=== PATIENT | female | born 1990 | race Caucasian/White ===

== ENCOUNTER → 2017-03-18 | Outpatient (CLI) | payer BC, OTHER ==
--- NOTE | 2017-03-18 13:32 | EKG REPORT ---
SEVERITY:- OTHERWISE NORMAL ECG - SINUS TACHYCARDIA : Confirmed by: Jaskaran Celeste 18-Mar-2017 13:31:20
== END ==
LOC: RAD 11:39
PROVIDERS: ATTEND Advanced Practice Midwife
DX: R00.0 Tachycardia, unspecified (principal)
CPT/HCPCS: 93005; 93010

== ENCOUNTER 2017-05-09 14:29 | Outpatient (CLI) | payer BC ==
--- NOTE | 2017-05-09 16:13 | Non Stress Test Report ---
Non Stress Test Datetime Report Generated by CPN: 05/09/2017 16:13 DEMOGRAPHIC Test Number: 1 EGA NST: 34.6 INDICATION Indication for Study: Other MONITORING Monitor Explained: Monitor Explained; Test Explained; Patient Verbalized Understanding Time on Monitor: 05/09/2017 11:08 Time off Monitor: 05/09/2017 16:06 NST Duration: 298 NST INTERVENTIONS NST Interventions: PO Hydration Physician Notified NST: C. Mead, CNM BABY A: [id number] BABY A Movement : Present Contraction Frequency : Irregular FHR Baseline : 130 Accelerations : 15X15 Decelerations : None Variability : Moderate 6-25bpm NST Review: Meets Criteria for Reactive NST NST Review and Verified By : Guillermina Camp RNC NST Results: Reactive NST REPORT Report Trigger: Send Report
[2017-05-09 16:14] LABS: APPEARANCE,URINE CLEAR; BILIRUBIN,URINE NEGATIVE (NEGATIVE); COLOR,URINE STRAW; GLUCOSE, URINE NEGATIVE (NEGATIVE); KETONES,URINE NEGATIVE (NEGATIVE); LEUKOCYTE ESTERASE,URINE NEGATIVE (NEGATIVE); NITRITE,URINE NEGATIVE (NEGATIVE); PROTEIN,URINE NEGATIVE (NEGATIVE); URINE SPECIFIC GRAVITY 1.005; UROBILINOGEN,URINE NEGATIVE mg/dL (<2.0)
[2017-05-09 16:24] LABS: URINE AMPHETAMINES SCREEN NEGATIVE; URINE BARBITURATES SCREEN NEGATIVE; URINE BENZODIAZEPINES SCREEN NEGATIVE; URINE COCAINE SCREEN NEGATIVE; URINE MARIJUANA (THC) SCREEN NEGATIVE; URINE METHADONE SCREEN NEGATIVE; URINE PHENCYCLIDINE SCREEN NEGATIVE
== END 2017-05-09 16:13 | disposition home or self-care (01) ==
LOC: LC 14:29
PROVIDERS: ATTEND Obstetrics & Gynecology Gynecology
PROC: 4A1HXCZ Monitoring of Products of Conception, Cardiac Rate, External Approach (ICD-10-PCS; principal; 2017-05-09)
DX: O47.03 False labor before 37 completed weeks of gestation, third trimester (principal); Z3A.34 34 weeks gestation of pregnancy
CPT/HCPCS: 59025; 80307; 81001

== ENCOUNTER 2017-05-25 20:07 | Outpatient (CLI) | payer BC ==
[2017-05-25] MEDS ORDERED: RINGERS SOLUTION,LACTATED 1,000 ML IV PRN (20:29)
[2017-05-25 20:35] LABS: APPEARANCE,URINE CLEAR; BILIRUBIN,URINE NEGATIVE (NEGATIVE); COLOR,URINE YELLOW; GLUCOSE, URINE NEGATIVE (NEGATIVE); KETONES,URINE NEGATIVE (NEGATIVE); LEUKOCYTE ESTERASE,URINE NEGATIVE (NEGATIVE); NITRITE,URINE NEGATIVE (NEGATIVE); PROTEIN,URINE NEGATIVE (NEGATIVE); URINE SPECIFIC GRAVITY 1.014; UROBILINOGEN,URINE NEGATIVE mg/dL (<2.0)
[2017-05-25 20:56] LABS: URINE AMPHETAMINES SCREEN NEGATIVE; URINE BARBITURATES SCREEN NEGATIVE; URINE BENZODIAZEPINES SCREEN NEGATIVE; URINE COCAINE SCREEN NEGATIVE; URINE MARIJUANA (THC) SCREEN NEGATIVE; URINE METHADONE SCREEN NEGATIVE; URINE PHENCYCLIDINE SCREEN NEGATIVE
[2017-05-25] MEDS ORDERED: NALBUPHINE HCL INJ 10 MG/1 ML AMPULE ONE (22:53)
--- NOTE | 2017-05-25 23:53 | Non Stress Test Report ---
Non Stress Test Datetime Report Generated by CPN: 05/25/2017 23:53 DEMOGRAPHIC EGA NST: 37.1 INDICATION Indication for Study: Other Indication for Study (NST) Other: lc MONITORING Monitor Explained: Monitor Explained; Test Explained; Patient Verbalized Understanding Time on Monitor: 05/25/2017 22:00 Time off Monitor: 05/25/2017 23:00 NST Duration: 60 NST INTERVENTIONS NST Interventions: IV Fluids; Reposition Patient Physician Notified NST: Dr Trevizo BABY A: [id number] BABY A Movement : Present Contraction Frequency : 5-9 FHR Baseline : 130 Accelerations : 15X15 Decelerations : None Variability : Moderate 6-25bpm NST Review: Meets Criteria for Reactive NST NST Review and Verified By : Becca Blank RN NST Results: Reactive NST REPORT Report Trigger: Send Report
== END 2017-05-25 23:30 | disposition home or self-care (01) ==
LOC: LC 20:07
PROVIDERS: ATTEND Obstetrics & Gynecology
PROC: 4A1HXCZ Monitoring of Products of Conception, Cardiac Rate, External Approach (ICD-10-PCS; principal; 2017-05-25)
DX: O47.1 False labor at or after 37 completed weeks of gestation (principal); Z3A.37 37 weeks gestation of pregnancy
CPT/HCPCS: 59025; 81005; 80307; J2300

== ENCOUNTER 2017-05-26 21:20 | Outpatient (CLI) | payer BC ==
[2017-05-26 23:03] LABS: URINE AMPHETAMINES SCREEN NEGATIVE; URINE BARBITURATES SCREEN NEGATIVE; URINE BENZODIAZEPINES SCREEN NEGATIVE; URINE COCAINE SCREEN NEGATIVE; URINE MARIJUANA (THC) SCREEN NEGATIVE; URINE METHADONE SCREEN NEGATIVE; URINE PHENCYCLIDINE SCREEN NEGATIVE
[2017-05-26 23:05] LABS: APPEARANCE,URINE CLEAR; BILIRUBIN,URINE NEGATIVE (NEGATIVE); COLOR,URINE YELLOW; GLUCOSE, URINE NEGATIVE (NEGATIVE); KETONES,URINE NEGATIVE (NEGATIVE); LEUKOCYTE ESTERASE,URINE NEGATIVE (NEGATIVE); NITRITE,URINE NEGATIVE (NEGATIVE); PROTEIN,URINE NEGATIVE (NEGATIVE); URINE SPECIFIC GRAVITY 1.014; UROBILINOGEN,URINE NEGATIVE mg/dL (<2.0)
== END 2017-05-26 22:32 | disposition home or self-care (01) ==
LOC: LC 21:20
PROVIDERS: ATTEND Student in an Organized Health Care Education/Training Program
PROC: 4A1HXCZ Monitoring of Products of Conception, Cardiac Rate, External Approach (ICD-10-PCS; principal; 2017-05-26)
DX: O47.1 False labor at or after 37 completed weeks of gestation (principal); Z3A.37 37 weeks gestation of pregnancy
CPT/HCPCS: 59025; 80307; 81001

== ENCOUNTER 2017-06-07 04:59 | Inpatient (IN) | payer BC ==
[2017-06-05 12:31] LABS: APPEARANCE,URINE SLIGHTLY-CLOUDY; BILIRUBIN,URINE NEGATIVE (NEGATIVE); COLOR,URINE YELLOW; GLUCOSE, URINE NEGATIVE (NEGATIVE); KETONES,URINE NEGATIVE (NEGATIVE); LEUKOCYTE ESTERASE,URINE NEGATIVE (NEGATIVE); NITRITE,URINE NEGATIVE (NEGATIVE); PROTEIN,URINE NEGATIVE (NEGATIVE); URINE SPECIFIC GRAVITY 1.021; UROBILINOGEN,URINE NEGATIVE mg/dL (<2.0)
[2017-06-05 12:32] LABS: ABSOLUTE LYMPHOCYTES (AUTO) 2.2 10^3/uL (0.5-4.7); ABSOLUTE MONOCYTES (AUTO) 0.5 10^3/uL (0.1-1.4); ABSOLUTE NEUT (AUTO) 8.5 10^3/uL (1.7-8.2); BASOPHILS % (AUTO) 0.4 % (0-2); EOSINOPHILS % (AUTO) 0.2 % (0-6); HEMATOCRIT 40.5 % (36.0-47.0); HEMOGLOBIN 13.6 g/dL (12.0-15.5); LYMPHOCYTES % (AUTO) 19.9 % (13-45); MEAN CORPUSCULAR HEMOGLOBIN 30.2 pg (27.0-33.4); MEAN CORPUSCULAR HGB CONC 33.5 g/dL (32.0-36.0); MEAN CORPUSCULAR VOLUME 90 fl (80-97); PLATELET COUNT 136 10^3/uL (150-450); RED BLOOD COUNT 4.51 10^6/uL (3.72-5.28); RED CELL DISTRIBUTION WIDTH 14.5 % (11.5-14.0); SEGMENTED NEUTROPHILS % (AUTO) 75.5 % (42-78); TOTAL CELLS COUNTED % (AUTO) 100 %; WHITE BLOOD COUNT 11.3 10^3/uL (4.0-10.5)
[2017-06-05 12:57] LABS: URINE AMPHETAMINES SCREEN NEGATIVE; URINE BARBITURATES SCREEN NEGATIVE; URINE BENZODIAZEPINES SCREEN NEGATIVE; URINE COCAINE SCREEN NEGATIVE; URINE MARIJUANA (THC) SCREEN NEGATIVE; URINE METHADONE SCREEN NEGATIVE; URINE PHENCYCLIDINE SCREEN NEGATIVE
[2017-06-07] MEDS ORDERED: LIDOCAINE 0.5% INJ-PF (5 MG/ML) 50 ML SDV SUBCUT PRN (05:00)
[2017-06-07] MEDS ORDERED: RINGERS SOLUTION,LACTATED 1,000 ML IV PRN ×2 (05:00→10:35)
[2017-06-07] MEDS ORDERED: LACTATED RINGERS 1000 ML IV PRN (05:00)
[2017-06-07] MEDS ORDERED: CEFAZOLIN 1 GM/D5W RTU 1 GM/50 ML RTUPB IV PRN (05:00)
[2017-06-07] MEDS ORDERED: ACETAMINOPHEN 100 ML IV ONE ×3 (07:19→16:00)
[2017-06-07] MEDS ORDERED: OXYTOCIN 10 UNIT/ML VIAL ONE (07:19)
[2017-06-07] MEDS ORDERED: FENTANYL CITRATE INJ/PF 100 MCG/2 ML AMPUL ONE (07:19)
[2017-06-07] MEDS ORDERED: MIDAZOLAM 2 MG/2 ML INJ ONE (07:19)
[2017-06-07] MEDS ORDERED: OXYTOCIN/NORMAL SALINE 20 UNIT/1,000 ML RTUINJ ONE (07:19)
[2017-06-07] MEDS ORDERED: PHENYLEPHRINE HCL INJ/PF 10 MG/1 ML SDV ONE (07:19)
[2017-06-07] MEDS ORDERED: ONDANSETRON HCL INJ/PF 4 MG/2 ML SDV ONE (07:20)
[2017-06-07] MEDS ORDERED: BUPIVACAINE HCL/DEX-WATER/PF 15 MG/2 ML AMPULE ONE (07:30)
[2017-06-07] MEDS ORDERED: DIPHENHYDRAMINE HCL 50 MG/ML VIAL IV PRN (08:19)
[2017-06-07] MEDS ORDERED: PROMETHAZINE HCL INJ 25 MG/1 ML VIAL IV PRN (08:19)
[2017-06-07] MEDS ORDERED: FENTANYL CITRATE INJ/PF 100 MCG/2 ML AMPUL IV PRN ×3 (08:19)
[2017-06-07] MEDS ORDERED: ONDANSETRON HCL INJ/PF 4 MG/2 ML SDV IV PRN (08:19)
[2017-06-07] MEDS ORDERED: MORPHINE SULFATE 10 MG/ML INJ IV PRN (08:19)
[2017-06-07] MEDS ORDERED: PROPOFOL INJ 200 MG/20 ML VIAL IV ONE (08:31)
[2017-06-07] MEDS ORDERED: KETOROLAC TROMETHAMINE 60 MG/2 ML SDV ONE (08:46)
--- NOTE | 2017-06-07 09:13 | OPERATIVE REPORT E ---
Operative Report NAME: SUMAYA VILLAVICENCIO : 1990 AGE: 27Y DATE OF SURGERY: 06/07/2017 ROOM: 222 PREOPERATIVE DIAGNOSES: 1. IUP at 39 weeks and 0 days. 2. Previous . 3. Keloid scar. POSTOPERATIVE DIAGNOSES: 1. IUP at 39 weeks and 0 days. 2. Previous . 3. Keloid scar. PROCEDURE: Low transverse hysterotomy section repeat was scar revision. SURGEON: MARTINA WALTERS M.D. ANESTHESIA: Dr. Barlow with a spinal. FINDINGS: Male in cephalic presentation with Apgars of 9 and 9. COMPLICATIONS: None. ESTIMATED BLOOD LOSS: 600 mL. SPECIMENS REMOVED: None. PROCEDURE IN DETAIL: Patient was taken to the operating room, prepared and draped in normal sterile fashion in the supine position with a leftward tilt. A transverse skin incision was made following the patient's previous scar. A thickened area of the midline scar was removed by undermining with a scalpel and using Allis' as a retractor until this section was removed. The rest of the incision was then carried through to the underlying of fascia with the same scalpel. The fascia was excised in the midline and extended laterally with Evaristo. The fascia was then dissected from the rectus muscle sharply with Evaristo both superiorly and inferiorly. The rectus muscle was divided and the peritoneal cavity was entered bluntly with good visualization of the bladder and the uterus. The bladder blade was inserted and the hysterotomy was nicked in the center with a scalpel and extended laterally with surgeon finger fracture. The was then delivered atraumatically. The nose and mouth were suctioned with a suction bulb. The cord was clamped and cut, and the infant was handed off to waiting painter spring. The cord blood was collected. The placenta was removed manually. The uterus was exteriorized and cleared of clots and debris. The hysterotomy was closed with 0 Monocryl in a running locked fashion. A second layer of the same suture was used to imbricate to ensure hemostasis. The uterus was then returned to the abdomen, and the peritoneal cavity was cleared of clots and debris. The rectus muscle and peritoneum were reapproximated with a mattress suture of 2-0 chromic. The fascia was closed with 0 Vicryl. The subcutaneous layer was closed with plain catgut and the skin was closed with 4-0 Vicryl. Patient tolerated procedure well. Sponge, lap and needle counts were correct x2. Patient was taken to recovery in stable condition. DICTATING PHYSICIAN: MARTINA WALTERS M.D. [id number] PHY#: [id number] ID: [id number] JOB#: [id number] ACCT: [id number] cc:MARTINA WALTERS M.D. >
[2017-06-07] MEDS ORDERED: HYDROMORPHONE HCL INJ/PF 2 MG/ML AMPULE ONE (10:10)
[2017-06-07] MEDS ORDERED: OXYTOCIN/NORMAL SALINE 20 UNIT/1,000 ML RTUINJ INJ PRN (10:34)
[2017-06-07] MEDS ORDERED: SIMETHICONE 80 MG TAB.CHEW PO PRN (11:00)
[2017-06-07] MEDS ORDERED: DIPH/PERTUSS(ACELL)/TETANUS VAC/PF 0.5 ML SYR (>=10YO) IM PRN (11:00)
[2017-06-07] MEDS ORDERED: PROMETHAZINE HCL INJ 25 MG/1 ML VIAL IM PRN (11:00)
[2017-06-07] MEDS ORDERED: MEASLES,MUMPS&RUBELLA VACC/PF 0.5 ML VIAL SUBCUT PRN (11:00)
[2017-06-07] MEDS ORDERED: ACETAMINOPHEN 325 MG TABLET PO PRN (11:00)
[2017-06-07] MEDS ORDERED: RINGERS SOLUTION,LACTATED 1,000 ML IV SCH (11:00)
[2017-06-07] MEDS: OXYCODONE-ACETAMINOPHEN 5-325 MG TABLET PO PRN ×2 (11:28→20:00)
[2017-06-07] MEDS: HYDROMORPHONE HCL INJ/PF 2 MG/ML AMPULE IV PRN ×2 (14:04→22:18)
[2017-06-07] MEDS ORDERED: KETOROLAC TROMETHAMINE INJ/PF 30 MG/1 ML SDV IV SCH (18:00)
[2017-06-07] MEDS: DOCUSATE SODIUM 100 MG CAPSULE PO SCH (18:31)
[2017-06-08] MEDS: KETOROLAC TROMETHAMINE INJ/PF 30 MG/1 ML SDV IV SCH ×3 (01:48→15:43)
[2017-06-08 07:06] LABS: HEMATOCRIT 31.3 % (36.0-47.0); MEAN CORPUSCULAR HEMOGLOBIN 30.8 pg (27.0-33.4); MEAN CORPUSCULAR HGB CONC 34.5 g/dL (32.0-36.0); MEAN CORPUSCULAR VOLUME 89 fl (80-97); PLATELET COUNT 112 10^3/uL (150-450); RED BLOOD COUNT 3.51 10^6/uL (3.72-5.28); RED CELL DISTRIBUTION WIDTH 14.8 % (11.5-14.0); WHITE BLOOD COUNT 9.2 10^3/uL (4.0-10.5)
[2017-06-08 07:09] LABS: HEMOGLOBIN 10.8 g/dL (12.0-15.5)
[2017-06-08] MEDS: OXYCODONE-ACETAMINOPHEN 5-325 MG TABLET PO PRN ×3 (07:37→17:57)
[2017-06-08] MEDS: PRENATAL VITAMIN W DHA CAPSULE PO SCH (09:42)
[2017-06-08] MEDS: DOCUSATE SODIUM 100 MG CAPSULE PO SCH ×2 (09:43→17:58)
--- NOTE | 2017-06-08 10:26 | PDOC PROGRESS REPORT ---
Subjective-OB Progress Note for:: 06/08/17 Physical Exam (OB) Vital Signs: Temp Pulse Resp BP Pulse Ox 98.9 F 116 H 15 110/69 97 06/08/17 07:00 06/08/17 07:00 06/08/17 07:00 06/08/17 07:00 06/08/17 07:00 Intake & Output 06/07/17 06/08/17 06/09/17 06:59 06:59 06:59 Intake Total 2815 Output Total 2300 Balance 515 - PIH/Pre-Eclampsia Headache: Absent Epigastric Pain: No Visual Changes: No - Dressing Removed: No Incision: Dressing, Well Approximated Closure Type: opsite - Lochia Lochia Amount: Scant < 10 ml Lochia Color: Rubra/Red - Abdomen Description: Tender, Distended Hernia Present: No Bowel Sounds: Normoactive Flatus Presence: Absent Stool: No Fundal Description: Firm Fundal Height: u/u - u/2 Objective-Diagnostic Laboratory: 06/08/17 06:50 06/08/17 06:50 WBC 9.2 RBC 3.51 L Hgb 10.8 L D Hct 31.3 L MCV 89 MCH 30.8 MCHC 34.5 RDW 14.8 H Plt Count 112 L
[2017-06-08] MEDS: IBUPROFEN 800 MG TABLET PO SCH ×2 (15:15→20:36)
[2017-06-09] MEDS: IBUPROFEN 800 MG TABLET PO SCH ×2 (02:03→09:20)
[2017-06-09] MEDS: PRENATAL VITAMIN W DHA CAPSULE PO SCH (09:20)
[2017-06-09] MEDS: DOCUSATE SODIUM 100 MG CAPSULE PO SCH (09:20)
--- NOTE | 2017-06-09 09:55 | PDOC PROGRESS REPORT ---
Subjective-OB Progress Note for:: 06/09/17 Subjective: Ready to go home. Physical Exam (OB) Vital Signs: Temp Pulse Resp BP Pulse Ox 98.2 F 79 16 122/74 94 06/09/17 08:28 06/09/17 08:28 06/09/17 08:28 06/09/17 08:28 06/09/17 08:28 Intake & Output 06/08/17 06/09/17 06/10/17 06:59 06:59 06:59 Intake Total 2815 1480 Output Total 2300 Balance 515 1480 - PIH/Pre-Eclampsia DTR's: 2 + Clonus: Negative Headache: Absent Epigastric Pain: No Visual Changes: No - Dressing Removed: No Incision: Dressing Closure Type: opsite - Bilateral Tubal Ligation Dressing Removed: No - Lochia Lochia Amount: Scant < 10 ml Lochia Color: Rubra/Red - Abdomen Description: Tender, Soft, Flat Hernia Present: No Bowel Sounds: Normoactive Flatus Presence: Present Stool: Yes Fundal Description: Firm, Midline Fundal Height: u/u - u/2 Objective-Diagnostic Laboratory: 06/08/17 06:50
--- NOTE | 2017-06-09 10:01 | PDOC DISCHARGE SUMMARY ---
Final Diagnosis Discharge Date: 06/09/17 - Final Diagnosis (1) Anxiety Is this a current diagnosis for this admission?: Yes (2) Delivery by elective caesarean section Is this a current diagnosis for this admission?: Yes (3) GDM, class A1 Is this a current diagnosis for this admission?: Yes (4) Is this a current diagnosis for this admission?: Yes Discharge Data - Discharge Medication Prescriptions: Oxycodone HCl/Acetaminophen [Percocet 5-325 mg Tablet] 1 tab PO Q4HP PRN #20 tablet PRN Reason: Ibuprofen [Motrin 800 mg Tablet] 800 mg PO Q6A #30 tablet Home Medications: Vit#42/FA Cmb#6 [Prena1 Chew Tablet] 1 mg PO QHS 04/02/13 Ibuprofen [Motrin 800 mg Tablet] 800 mg PO Q6A #30 tablet 06/09/17 Oxycodone HCl/Acetaminophen [Percocet 5-325 mg Tablet] 1 tab PO Q4HP PRN #20 tablet 06/09/17 Gestational Age: 39 wks Reason(s) for Admission: Ceasarean Section-Repeat Intrapartum Procedure(s): : Low Cervical, Transverse - Data Baby 1 Male at 1 minute: 8 at 5 minutes: 9 Weight: 3.43 kg Home with Mother: Yes Complications: No - Diagnosis Test Laboratory: Temp Pulse Resp BP Pulse Ox 98.2 F 79 16 122/74 94 06/09/17 08:28 06/09/17 08:28 06/09/17 08:28 06/09/17 08:28 06/09/17 08:28 06/05/17 06/05/17 06/08/17 11:15 11:20 06:50 RBC 4.51 3.51 L Hgb 13.6 10.8 L D Hct 40.5 31.3 L Urine Opiates Screen NEGATIVE - Discharge information/Instructions Discharge Activity: Activity As Tolerated, Balance Activity w/Rest, No Lifting Over 10 Pounds, No Lifting/Push/Pulling, Non-Ambulatory Child, Pelvic Rest, Slowly Increase Activity, No tub bath Discharge Diet: Regular Disposition: HOME, SELF-CARE Follow up with: [facility] in: 1, Weeks
[2017-06-09] MEDS: OXYCODONE-ACETAMINOPHEN 5-325 MG TABLET PO PRN (10:05)
[2017-06-09 11:25] VITALS: BP 124/76
== END 2017-06-09 13:23 | disposition home or self-care (01) | DRG 766 ==
LOC: 2S 04:59
PROVIDERS: ADMIT Obstetrics & Gynecology; ATTEND Obstetrics & Gynecology
PROC: 0HB7XZZ Excision of Abdomen Skin, External Approach (ICD-10-PCS; 2017-06-07)
PROC: 10D00Z1 Extraction of Products of Conception, Low, Open Approach (ICD-10-PCS; principal; 2017-06-07 07:30)
DX: O34.211 Maternal care for low transverse scar from previous cesarean delivery (principal); O24.420 Gestational diabetes mellitus in childbirth, diet controlled; O99.344 Other mental disorders complicating childbirth; O99.334 Smoking (tobacco) complicating childbirth; N85.8 Other specified noninflammatory disorders of uterus; F41.9 Anxiety disorder, unspecified; F17.211 Nicotine dependence, cigarettes, in remission; Z3A.39 39 weeks gestation of pregnancy; Z37.0 Single live birth
CPT/HCPCS: 1961; 36415; 59025; 80307; 81001; 82962; 85025; 85027; 86850; 86900; 86901; 94799; J0131; J0690; J1170; J1885; J2250; J2370; J2405; J2590; J2704; J3010; J3490; J7120

== ENCOUNTER 2017-06-10 22:15 | Emergency (ER) | payer BC ==
[2017-06-11] MEDS ORDERED: DIPHENHYDRAMINE HCL 50 MG/ML VIAL IV ONE (00:13)
[2017-06-11] MEDS ORDERED: METOCLOPRAMIDE HCL INJ/PF 10 MG/2 ML SDV IV ONE (00:13)
[2017-06-11] MEDS ORDERED: KETOROLAC TROMETHAMINE INJ/PF 30 MG/1 ML SDV IV ONE (00:13)
[2017-06-11] MEDS ORDERED: NORMAL SALINE 1000 ML 1,000 ML IV ONE (00:14)
--- NOTE | 2017-06-11 00:17 | ER Document Report ---
ED Medical Screen (RME) - General Chief Complaint: Headache Stated Complaint: HEADACHE Time Seen by Provider: 06/11/17 00:04 Mode of Arrival: Ambulatory Information source: Patient TRAVEL OUTSIDE OF THE [place] IN LAST 30 DAYS: No - HPI Patient complains to provider of: HEADACHE Notes: 06/11/17 00:15 Patient is here with complaints of headache. Patient had a 4 days ago. She had a spinal epidural to have this performed. She states that while she was in a headache she experienced some headaches that seem to improve and over the last few days have gotten dramatically worse. States that the headache is much worse if she is upright and seems to improve some when she lies flat. She denies fevers. She does complain of some nausea but denies any vomiting or diarrhea. She denies any abdominal pain. She denies any numbness, tingling, weakness. She also reports that she was having severe pain on her way over here and thinks that she may have had a panic attack but feels much better in that regard at this time. PE: Patient appears to be uncomfortable and is tearful. She has a nonfocal neurological exam. She has no nuchal rigidity or meningismus. An initial examination was made on the patient as part of the triage process, and it was determined a more comprehensive evaluation was necessary. Initial labs were ordered and patient was transferred to another provider in the ED who assumed care and finished evaluation and plan. - Related Data Allergies/Adverse Reactions: sulfamethoxazole [From Decra] Allergy (Mild, Verified 06/05/17 12:22) RASH trimethoprim [From Decra] Allergy (Mild, Verified 06/05/17 12:22) Past Medical History Neurological Medical History: Denies: Hx Cerebrovascular Accident, Hx Seizures Renal/ Medical History: Reports: Hx Kidney Stones - during , Hx Ovarian Cysts - 2009 RUPTURED. Denies: Hx Pelvic Inflammatory Disease Malignancy Medical History: Denies: Hx Breast Cancer, Hx Cervical Cancer, Hx Ovarian Cancer Musculoskeltal Medical History: Denies Hx Fibromyalgia Traumatic Medical History: Reports: Hx Fractures - HX OF FRACTURED RT BIG TOE, COCCYX FRACTURE Past Surgical History: Reports: Hx Section, Hx Gynecologic Surgery - D& C - Immunizations Hx Diphtheria, Pertussis, Tetanus Vaccination: Yes Physical Exam - Vital signs Vitals: Temp Pulse Resp BP Pulse Ox 98.3 F 101 H 20 135/91 H 99 06/10/17 22:20 06/10/17 22:20 06/10/17 22:20 06/10/17 22:20 06/10/17 22:20 Course - Vital Signs Vital signs: Temp Pulse Resp BP Pulse Ox 98.4 F 111 H 20 146/87 H 99 06/10/17 23:20 06/10/17 23:20 06/10/17 23:20 06/10/17 23:20 06/10/17 23:20
[2017-06-11 01:08] LABS: ABSOLUTE EOSINOPHILS # (AUTO) 0.1 10^3/uL (0.0-0.6); ABSOLUTE LYMPHOCYTES (AUTO) 1.4 10^3/uL (0.5-4.7); ABSOLUTE MONOCYTES (AUTO) 0.4 10^3/uL (0.1-1.4); ABSOLUTE NEUT (AUTO) 7.6 10^3/uL (1.7-8.2); BASOPHILS % (AUTO) 0.3 % (0-2); EOSINOPHILS % (AUTO) 1.1 % (0-6); HEMATOCRIT 32.6 % (36.0-47.0); HEMOGLOBIN 11.3 g/dL (12.0-15.5); LYMPHOCYTES % (AUTO) 15.2 % (13-45); MEAN CORPUSCULAR HEMOGLOBIN 31.2 pg (27.0-33.4); MEAN CORPUSCULAR HGB CONC 34.5 g/dL (32.0-36.0); MEAN CORPUSCULAR VOLUME 91 fl (80-97); MONOCYTES % (AUTO) 3.8 % (3-13); PLATELET COUNT 197 10^3/uL (150-450); RED BLOOD COUNT 3.61 10^6/uL (3.72-5.28); RED CELL DISTRIBUTION WIDTH 14.5 % (11.5-14.0); SEGMENTED NEUTROPHILS % (AUTO) 79.6 % (42-78); TOTAL CELLS COUNTED % (AUTO) 100 %; WHITE BLOOD COUNT 9.5 10^3/uL (4.0-10.5)
[2017-06-11 01:28] LABS: ALANINE AMINOTRANSFERASE 132 U/L (9-52); ALBUMIN 3.3 g/dL (3.5-5.0); ALKALINE PHOSPHATASE 120 U/L (38-126); ANION GAP 10 (5-19); ASPARTATE AMINO TRANSFERASE 82 U/L (14-36); BILIRUBIN,DIRECT 0.3 mg/dL (0.0-0.4); BILIRUBIN,TOTAL 0.4 mg/dL (0.2-1.3); BLOOD UREA NITROGEN 15 mg/dL (7-20); CALCIUM 9.1 mg/dL (8.4-10.2); CARBON DIOXIDE 24 mmol/L (22-30); CHLORIDE 110 mmol/L (98-107); GLUCOSE 90 mg/dL (75-110); POTASSIUM 4.3 mmol/L (3.6-5.0); SODIUM 143.8 mmol/L (137-145); TOTAL PROTEIN 5.9 g/dL (6.3-8.2)
[2017-06-11 01:30] LABS: INTERNATIONAL RATION (INR) 0.93; PROTHROMBIN TIME 13.1 SEC (11.4-15.4)
[2017-06-11 01:31] LABS: PARTIAL THROMBOPLASTIN TIME 30.4 SEC (23.5-35.8)
[2017-06-11 01:35] LABS: APPEARANCE,URINE CLEAR; BILIRUBIN,URINE NEGATIVE (NEGATIVE); COLOR,URINE STRAW; GLUCOSE, URINE NEGATIVE (NEGATIVE); KETONES,URINE TRACE mg/dL (NEGATIVE); LEUKOCYTE ESTERASE,URINE NEGATIVE (NEGATIVE); NITRITE,URINE NEGATIVE (NEGATIVE); PROTEIN,URINE NEGATIVE (NEGATIVE); URINE SPECIFIC GRAVITY 1.011; UROBILINOGEN,URINE NEGATIVE mg/dL (<2.0)
--- NOTE | 2017-06-11 02:06 | ER Document Report ---
ED General - General Chief Complaint: Headache Stated Complaint: HEADACHE Time Seen by Provider: 06/11/17 00:04 Mode of Arrival: Ambulatory Notes: Patient is a 27-year-old female without past medical history, 5 days from a delivery who presents with a headache. Patient states that for the past 6-7 hours she has had a progressively worsening dull, constant bitemporal headache with associated photophobia and phonophobia. She notes that she has also been nauseated but has not vomited. She notes that she has had headaches like this in the past but they have not been this severe. She reports that since being discharged in the hospital she has had intermittent headaches although nothing persistent. She states that however tonight was much more severe than it had been since being discharged which prompted her to return to the emergency department for assessment. She denies any focal weakness, numbness, fever, or altered mental status. She does not have a history of preeclampsia during her . She has not seen her general doctor or TELECOMMUNICATION TOWER TECHNICIAN regarding today's concerns. TRAVEL OUTSIDE OF THE [place] IN LAST 30 DAYS: No - Related Data Allergies/Adverse Reactions: sulfamethoxazole [From Septra] Allergy (Mild, Verified 06/05/17 12:22) RASH trimethoprim [From Septra] Allergy (Mild, Verified 06/05/17 12:22) Past Medical History - General Information source: Patient - Social History Smoking Status: Never Smoker Chew tobacco use (# tins/day): No Frequency of alcohol use: None Drug Abuse: None Lives with: Spouse/Significant other Family History: Reviewed & Not Pertinent Patient has suicidal ideation: No Patient has homicidal ideation: No Neurological Medical History: Denies: Hx Cerebrovascular Accident, Hx Seizures Renal/ Medical History: Reports: Hx Kidney Stones - during , Hx Ovarian Cysts - 2009 RUPTURED. Denies: Hx Peritoneal Dialysis, Hx Pelvic Inflammatory Disease Malignancy Medical History: Denies: Hx Breast Cancer, Hx Cervical Cancer, Hx Ovarian Cancer Musculoskeltal Medical History: Denies Hx Fibromyalgia Traumatic Medical History: Reports: Hx Fractures - HX OF FRACTURED RT BIG TOE, COCCYX FRACTURE Past Surgical History: Reports: Hx Section, Hx Gynecologic Surgery - D& C - Immunizations Hx Diphtheria, Pertussis, Tetanus Vaccination: Yes Review of Systems - Review of Systems Notes: Constitutional: Negative for fever. HENT: Negative for sore throat. Eyes: Negative for visual changes. Cardiovascular: Negative for chest pain. Respiratory: Negative for shortness of breath. Gastrointestinal: Negative for abdominal pain, vomiting or diarrhea. Genitourinary: Negative for dysuria. Musculoskeletal: Negative for back pain. Skin: Negative for rash. Neurological: Positive for headache 10 point ROS negative except as marked above and in HPI. Physical Exam - Vital signs Vitals: Temp Pulse Resp BP Pulse Ox 98.3 F 101 H 20 135/91 H 99 06/10/17 22:20 06/10/17 22:20 06/10/17 22:20 06/10/17 22:20 06/10/17 22:20 Interpretation: Tachycardic Notes: PHYSICAL EXAMINATION: GENERAL: Well-appearing, well-nourished and in no acute distress. HEAD: Atraumatic, normocephalic. EYES: Pupils equal round and reactive to light, extraocular movements intact, sclera anicteric, conjunctiva are normal. ENT: nares patent, oropharynx clear without exudates. Moist mucous membranes. NECK: Normal range of motion, supple without lymphadenopathy LUNGS: Breath sounds clear to auscultation bilaterally and equal. No wheezes rales or rhonchi. HEART: Regular rate and rhythm without murmurs ABDOMEN: Soft, nontender, normoactive bowel sounds. No guarding, no rebound. No masses appreciated. EXTREMITIES: Normal range of motion, no pitting or edema. No cyanosis. NEUROLOGICAL: Face symmetric. Tongue protrudes midline. Extraocular motions intact. Pupils are 2 mm and equally reactive. Normal speech, normal gait. 5 out of 5 strength in both the distal and proximal upper and lower extremities bilaterally. Sensation is grossly intact throughout. Finger to nose testing normal. Pronator drift normal. PSYCH: Normal mood, normal affect. SKIN: Warm, Dry, normal turgor, no rashes or lesions noted. Course - Re-evaluation Re-evalutation: 06/11/17 02:04 Presentation of a headache that appears to be most consistent with tension versus migrainous type headache. Headache was not maximal in onset, patient has no focal neurologic deficits, no nuchal rigidity, vital signs within normal limits, no papilledema, and patient is overall well in appearance. Based on clinical history and examination I do not suspect an acute subarachnoid hemorrhage, dural venous sinus thrombosis, acute meningitis, or intercranial mass. Patient's initial blood pressure was within acceptable limits is not consistent with preeclampsia onset with associated headache. She did however have a mildly elevated blood pressure on recheck at 146 and we will recheck prior to discharge. Patient has had complete resolution of her headache after receiving a migraine cocktail. Her clinical history is not consistent with a positional lumbar and a headache as she notes that the headache is not persistent, is intermittent in nature, worsened by lights and sounds, and has been completely resolved by migraine cocktail which would likewise be inconsistent with a post lumbar puncture headache. At this time will discharge with return precautions and follow-up recommendations. Verbal discharge instructions given a the bedside and opportunity for questions given. Medication warnings reviewed. Patient is in agreement with this plan and has verbalized understanding of return precautions and the need for primary care follow-up in the next 24-72 hours. - Vital Signs Vital signs: Temp Pulse Resp BP Pulse Ox 98.4 F 97 18 125/70 100 06/11/17 02:25 06/11/17 02:25 06/11/17 02:25 06/11/17 02:25 06/11/17 02:25 - Laboratory Result Diagrams: 06/11/17 00:37 06/11/17 00:37 Laboratory results interpreted by me: 06/11/17 06/11/17 06/11/17 00:37 00:37 00:37 RBC 3.61 L Hgb 11.3 L Hct 32.6 L RDW 14.5 H Seg Neutrophils % 79.6 H Chloride 110 H AST 82 H ALT 132 H Total Protein 5.9 L Albumin 3.3 L Urine Ketones TRACE H Urine Blood LARGE H Discharge - Discharge Clinical Impression: Migraine headache Qualifiers: Migraine type: unspecified Status migrainosus presence: with status migrainosus Intractability: not intractable Qualified Code(s): G43.901 - Migraine, unspecified, not intractable, with status migrainosus Condition: Good Disposition: HOME, SELF-CARE Additional Instructions: You have been seen in the Emergency Department (ED) for a headache. Please use Tylenol (acetaminophen) or Motrin (ibuprofen) as needed for symptoms, but only as written on the box. As we have discussed, please follow up with your primary care doctor as soon as possible regarding today's ED visit and your headache symptoms. Call your doctor or return to the ED if you have a worsening headache, sudden and severe headache, confusion, slurred speech, facial droop, weakness or numbness in any arm or leg, extreme fatigue, or other symptoms that concern you. Referrals: SHIRAZ SANDOVAL MD [Primary Care Provider] - Follow up as needed
[2017-06-11 02:26] VITALS: BP 125/70
== END 2017-06-11 02:26 | disposition home or self-care (01) ==
LOC: ER 22:15
DX: G43.901 Migraine, unspecified, not intractable, with status migrainosus (principal); H53.149 Visual discomfort, unspecified
CPT/HCPCS: 99284; 96361; 96374; 96375; 36415; 85025; 85610; 85730; 80053; 81001; J1200; J1885; J2765; J7030

== ENCOUNTER → 2018-09-12 | Outpatient (CLI) | payer MEDICAID | LOC: OD 15:39 | PROVIDERS: ATTEND Nurse Practitioner Family | DX: J02.9 Acute pharyngitis, unspecified (principal) | CPT/HCPCS: 87070 ==

== ENCOUNTER 2018-11-28 05:04 | Inpatient (IN) | payer BC, MEDICAID ==
[2018-11-27 10:54] LABS: ABSOLUTE LYMPHOCYTES (AUTO) 2.2 10^3/uL (0.5-4.7); ABSOLUTE MONOCYTES (AUTO) 0.7 10^3/uL (0.1-1.4); ABSOLUTE NEUT (AUTO) 7.7 10^3/uL (1.7-8.2); BASOPHILS % (AUTO) 0.3 % (0-2); EOSINOPHILS % (AUTO) 0.2 % (0-6); HEMATOCRIT 37.3 % (36.0-47.0); HEMOGLOBIN 12.6 g/dL (12.0-15.5); LYMPHOCYTES % (AUTO) 20.6 % (13-45); MEAN CORPUSCULAR HEMOGLOBIN 29.8 pg (27.0-33.4); MEAN CORPUSCULAR HGB CONC 33.8 g/dL (32.0-36.0); MEAN CORPUSCULAR VOLUME 88 fl (80-97); MONOCYTES % (AUTO) 6.2 % (3-13); PLATELET COUNT 146 10^3/uL (150-450); RED BLOOD COUNT 4.22 10^6/uL (3.72-5.28); RED CELL DISTRIBUTION WIDTH 14.1 % (11.5-14.0); SEGMENTED NEUTROPHILS % (AUTO) 72.7 % (42-78); TOTAL CELLS COUNTED % (AUTO) 100 %; WHITE BLOOD COUNT 10.6 10^3/uL (4.0-10.5)
[2018-11-27 10:57] LABS: APPEARANCE,URINE CLEAR; BILIRUBIN,URINE NEGATIVE (NEGATIVE); COLOR,URINE STRAW; GLUCOSE, URINE NEGATIVE (NEGATIVE); KETONES,URINE NEGATIVE (NEGATIVE); LEUKOCYTE ESTERASE,URINE NEGATIVE (NEGATIVE); NITRITE,URINE NEGATIVE (NEGATIVE); PROTEIN,URINE NEGATIVE (NEGATIVE); URINE SPECIFIC GRAVITY 1.011; UROBILINOGEN,URINE NEGATIVE mg/dL (<2.0)
[2018-11-27 11:16] LABS: URINE AMPHETAMINES SCREEN NEGATIVE; URINE BARBITURATES SCREEN NEGATIVE; URINE BENZODIAZEPINES SCREEN NEGATIVE; URINE COCAINE SCREEN NEGATIVE; URINE MARIJUANA (THC) SCREEN NEGATIVE; URINE METHADONE SCREEN NEGATIVE; URINE PHENCYCLIDINE SCREEN NEGATIVE
[~2018-11-28 05:04] MED LIST: CEFAZOLIN SODIUM 2 GM in DEXTROSE 5%-WATER 100 ML IV PRN; LACTATED RINGERS 1000 ML IV PRN; LIDOCAINE 0.5% INJ-PF (5 MG/ML) 50 ML SDV SUBCUT PRN
[2018-11-28] MEDS ORDERED: OXYTOCIN/NORMAL SALINE 20 UNIT/1,000 ML RTUINJ ONE ×2 (07:11→09:07)
[2018-11-28] MEDS ORDERED: MIDAZOLAM 2 MG/2 ML INJ ONE (07:11)
[2018-11-28] MEDS ORDERED: FENTANYL CITRATE INJ/PF 100 MCG/2 ML AMPUL ONE (07:11)
[2018-11-28] MEDS ORDERED: PROPOFOL INJ 200 MG/20 ML VIAL IV ONE (07:11)
[2018-11-28] MEDS ORDERED: CITRIC ACID/SODIUM CITRATE ORAL SOLN 15 ML UDCUP ONE (07:11)
[2018-11-28] MEDS ORDERED: OXYTOCIN 10 UNIT/ML VIAL ONE (07:11)
[2018-11-28] MEDS ORDERED: EPHEDRINE SULFATE INJ 50 MG/1 ML AMPULE ONE (07:12)
[2018-11-28] MEDS ORDERED: ACETAMINOPHEN 325 MG TABLET PO PRN (08:38)
[2018-11-28] MEDS ORDERED: DIPH/PERTUSS(ACELL)/TETANUS VAC/PF 0.5 ML SYR (>=10YO) IM PRN (08:38)
[2018-11-28] MEDS ORDERED: MEASLES,MUMPS&RUBELLA VACC/PF 0.5 ML VIAL SUBCUT PRN (08:38)
[2018-11-28] MEDS ORDERED: OXYCODONE-ACETAMINOPHEN 5-325 MG TABLET PO PRN (08:38)
[2018-11-28] MEDS ORDERED: OXYTOCIN/NORMAL SALINE 20 UNIT/1,000 ML RTUINJ IV PRN (08:38)
[2018-11-28] MEDS ORDERED: PROMETHAZINE HCL INJ 25 MG/1 ML VIAL IV PRN ×3 (08:38→09:04)
[2018-11-28] MEDS ORDERED: ACETAMINOPHEN 1,000 MG/100 ML RTUPB IV PRN (08:38)
[2018-11-28] MEDS ORDERED: MORPHINE SULFATE 10 MG/ML INJ IV PRN ×2 (08:38→09:04)
--- NOTE | 2018-11-28 08:42 | Operative Report ---
Operative Report DATE OF SURGERY: 11/28/18 PREOPERATIVE DIAGNOSIS: IUP @ 39, previous c/section x 2, undesired fertility POSTOPERATIVE DIAGNOSIS: same OPERATION: repeat low transverse hysterotomy section with [place] tubal ligation SURGEON: MARTINA WALTERS 1ST INSURANCE SALES ASSOCIATE: LAN MCKEON ANESTHESIA: Spinal TISSUE REMOVED OR ALTERED: bilateral fallopian tube segments COMPLICATIONS: none ESTIMATED BLOOD LOSS: 750 cc INTRAOPERATIVE FINDINGS: Female , cephalic presentation, APGARS of 9/9. PROCEDURE: The patient was taken to the operating room, prepared and draped in anormal sterile fashion in a supine position with a leftward tilt. A transverse skin incision was made with a scalpel and carried through tothe underlying layer of fascia with the same scalpel. The fascia was excised in the midline and extended laterally with Darrick. The fascia was then dissected from the rectus muscle sharply with Darrick and the rectus muscle was divided and the peritoneal cavity was entered sharply with the same Metzenbaum. With good visualization of the bladder and the uterus the bladder blade was inserted. The hysterotomy was nicked with a scalpel and extended laterally with surgeon finger fraction. The infant was thendelivered atraumatically. The nose and mouth were suctioned with a suction bulb, the cord was clamped and cut and handed off to awaiting pediatricians. Cord blood was collected. The placenta was removed manually. The uterus was exteriorized and cleared of clots and debris. The hysterotomy was closed with 0 Monocryl in a running, locked fashion. A second layer of the same suture was used to imbricate to ensure hemostasis. Attention was then turned to the fallopian tubes where the right fallopian tube was grasped with a Tanika, the mesosalpinx was divided with a Bovie. a 3-1/2 cm segment of fallopian tube was tied off with 2 pieces of 2-0 chromic.this segment was ligated using Metzenbaums and the pedicles were made hemostatic with the Bovie. This procedure was repeated on the left fallopian tube without difficulty. The uterus was returned to the abdomen and peritoneal cavity was cleared of clots and debris. The pedicles were inspected and they were still hemostatic. The rectus muscle and peritoneum were repaired with mattress stitch of 2-0 Chromic. The fascia was closed with 0-Vicryl. The subcutaneous layer was closed with plain catgut and the skin was closed with 4-0 Vicryl. The patient tolerated the procedure well. Sponge, lap, and needle counts correct x2 and the patient was taken to recovery in stable condition.
[2018-11-28] MEDS ORDERED: FENTANYL CITRATE INJ/PF 100 MCG/2 ML AMPUL IV PRN ×3 (09:04)
[2018-11-28] MEDS ORDERED: MEPERIDINE HCL/PF INJ 25 MG/1 ML DISP.SYRIN IV PRN (09:04)
[2018-11-28] MEDS ORDERED: HYDROMORPHONE HCL INJ/PF 2 MG/ML AMPULE IV PRN (09:05)
[2018-11-28] MEDS ORDERED: MEPERIDINE HCL/PF INJ 25 MG/1 ML DISP.SYRIN ONE (09:25)
[2018-11-28] MEDS ORDERED: ACETAMINOPHEN 1,000 MG/100 ML RTUPB IV ONE (09:34)
[2018-11-28] MEDS ORDERED: DIPHENHYDRAMINE HCL 50 MG/ML VIAL ONE (10:27)
[2018-11-28] MEDS: DIPHENHYDRAMINE HCL 50 MG/ML VIAL IV PRN ×2 (10:28→10:31)
[2018-11-28] MEDS: KETOROLAC TROMETHAMINE INJ/PF 30 MG/1 ML SDV IV SCH ×2 (11:19→17:22)
[2018-11-28] MEDS: PRENATAL VITAMIN W DHA CAPSULE PO SCH (11:29)
[2018-11-28] MEDS: DOCUSATE SODIUM 100 MG CAPSULE PO SCH ×2 (11:29→17:23)
[2018-11-28] MEDS: OXYCODONE-ACETAMINOPHEN 5-325 MG TABLET PO PRN ×3 (12:19→22:57)
[2018-11-28] MEDS ORDERED: KETOROLAC TROMETHAMINE 60 MG/2 ML SDV ONE (14:44)
[2018-11-28] MEDS ORDERED: ONDANSETRON HCL INJ/PF 4 MG/2 ML SDV ONE (14:44)
[2018-11-28] MEDS ORDERED: METOCLOPRAMIDE HCL INJ/PF 10 MG/2 ML SDV ONE (14:44)
[2018-11-28] MEDS ORDERED: PHENYLEPHRINE HCL INJ/PF 10 MG/1 ML SDV ONE (14:44)
[2018-11-28] MEDS: SIMETHICONE 80 MG TAB.CHEW PO PRN ×2 (15:54→22:58)
[2018-11-29] MEDS: OXYCODONE-ACETAMINOPHEN 5-325 MG TABLET PO PRN ×2 (06:05→14:25)
[2018-11-29 08:03] LABS: HEMATOCRIT 22.6 % (36.0-47.0); MEAN CORPUSCULAR HEMOGLOBIN 30.9 pg (27.0-33.4); MEAN CORPUSCULAR HGB CONC 34.8 g/dL (32.0-36.0); MEAN CORPUSCULAR VOLUME 89 fl (80-97); PLATELET COUNT 115 10^3/uL (150-450); RED BLOOD COUNT 2.55 10^6/uL (3.72-5.28); WHITE BLOOD COUNT 9.3 10^3/uL (4.0-10.5)
[2018-11-29 08:10] LABS: HEMOGLOBIN 7.9 g/dL (12.0-15.5)
[2018-11-29] MEDS: IBUPROFEN 800 MG TABLET PO SCH ×3 (08:56→21:19)
[2018-11-29] MEDS: DOCUSATE SODIUM 100 MG CAPSULE PO SCH ×2 (10:25→17:04)
[2018-11-29] MEDS: PRENATAL VITAMIN W DHA CAPSULE PO SCH (10:32)
[2018-11-29] MEDS: SIMETHICONE 80 MG TAB.CHEW PO PRN (10:39)
--- NOTE | 2018-11-29 11:36 | PDOC PROGRESS REPORT ---
Subjective-OB Progress Note for:: 11/29/18 Subjective: Pt doing well, no concerns. She reports light bleeding, reg diet, no flatus yet and voiding without difficulty. Bonding with baby. Physical Exam (OB) Vital Signs: Temp Pulse Resp BP Pulse Ox 98.5 F 124 H 14 124/63 98 11/29/18 07:50 11/29/18 07:50 11/29/18 07:50 11/29/18 07:50 11/29/18 07:50 Intake & Output 11/28/18 11/29/18 11/30/18 06:59 06:59 06:59 Intake Total 100 Output Total 2740 Balance -2640 Weight 68.946 kg - Dressing Removed: No Incision: Dressing Closure Type: opsite - Bilateral Tubal Ligation Dressing Removed: No Site: Dressing - Lochia Lochia Amount: Small 10-25 ml Lochia Color: Rubra/Red - Abdomen Description: Soft Hernia Present: No Fundal Description: Firm, Non-Midline Describe if Not Midline: to the right, bladder non distended patient voided 150 Fundal Height: u/u - u/2 Objective-Diagnostic Laboratory: 11/29/18 07:21 11/29/18 07:21 WBC 9.3 RBC 2.55 L Hgb 7.9 L D Hct 22.6 L MCV 89 MCH 30.9 MCHC 34.8 RDW 14.0 Plt Count 115 L Assessment and Plan(PN) - Assessment and Plan (1) Anxiety Is this a current diagnosis for this admission?: Yes (2) Delivery by elective caesarean section Is this a current diagnosis for this admission?: Yes (3) GDM, class A1 Is this a current diagnosis for this admission?: Yes - Time Spent with Patient Time with patient: Less than 15 minutes Medications reviewed and adjusted accordingly: Yes - Disposition Anticipated Discharge: Home Within: within 24 hours
[2018-11-29] MEDS: SERTRALINE HCL 50 MG TABLET PO SCH (17:04)
[2018-11-30] MEDS: OXYCODONE-ACETAMINOPHEN 5-325 MG TABLET PO PRN ×2 (00:33→08:43)
[2018-11-30] MEDS: IBUPROFEN 800 MG TABLET PO SCH ×2 (03:27→08:40)
[2018-11-30] MEDS: DOCUSATE SODIUM 100 MG CAPSULE PO SCH (09:54)
[2018-11-30] MEDS: SERTRALINE HCL 50 MG TABLET PO SCH (09:54)
[2018-11-30 10:25] VITALS: BP 123/63
[2018-11-30] MEDS: PRENATAL VITAMIN W DHA CAPSULE PO SCH (11:12)
--- NOTE | 2018-11-30 11:36 | PDOC DISCHARGE SUMMARY ---
Final Diagnosis Discharge Date: 11/30/18 - Final Diagnosis (1) Anxiety Is this a current diagnosis for this admission?: Yes (2) Delivery by elective caesarean section Is this a current diagnosis for this admission?: Yes (3) GDM, class A1 Is this a current diagnosis for this admission?: Yes Discharge Data - Discharge Medication Home Medications: Vit#42/FA Cmb#6 [Prena1 Chew Tablet] 1 mg PO QHS 04/02/13 Butalb/Acetaminophen/Caffeine [Fioricet (50-325-40 mg) Tablet] 1 tab PO DAILY PRN 11/27/18 Reason(s) for Admission: Ceasarean Section-Repeat Procedures: None Intrapartum Procedure(s): : Low Cervical, Transverse - Diagnosis Test Laboratory: Temp Pulse Resp BP Pulse Ox 98.2 F 104 H 16 123/63 99 11/30/18 11:13 11/30/18 11:13 11/30/18 11:13 11/30/18 11:13 11/30/18 11:13 11/27/18 11/27/18 11/29/18 10:13 10:23 07:21 RBC 4.22 2.55 L Hgb 12.6 7.9 L D Hct 37.3 22.6 L Urine Opiates Screen NEGATIVE - Discharge information/Instructions Discharge Activity: Balance Activity w/Rest, No Lifting Over 10 Pounds, No Lifting/Push/Pulling, Pelvic Rest, No tub bath Discharge Diet: Regular Disposition: HOME, SELF-CARE Follow up with: [facility] in: 5, Days
== END 2018-11-30 12:55 | disposition home or self-care (01) | DRG 785 ==
LOC: 2S 05:04
PROVIDERS: ADMIT Obstetrics & Gynecology; ATTEND Obstetrics & Gynecology
PROC: 0UB70ZZ Excision of Bilateral Fallopian Tubes, Open Approach (ICD-10-PCS; 2018-11-28)
PROC: 10D00Z1 Extraction of Products of Conception, Low, Open Approach (ICD-10-PCS; principal; 2018-11-28 07:45)
DX: O34.211 Maternal care for low transverse scar from previous cesarean delivery (principal); O24.420 Gestational diabetes mellitus in childbirth, diet controlled; N85.8 Other specified noninflammatory disorders of uterus; Z3A.38 38 weeks gestation of pregnancy; O99.344 Other mental disorders complicating childbirth; F41.9 Anxiety disorder, unspecified; O99.334 Smoking (tobacco) complicating childbirth; F17.211 Nicotine dependence, cigarettes, in remission; Z37.0 Single live birth; Z30.2 Encounter for sterilization
CPT/HCPCS: 1961; 36415; 59025; 80307; 81001; 82962; 85025; 85027; 86850; 86900; 86901; 88302; 94760; 94799; J0131; J0690; J1170; J1200; J1885; J2175; J2250; J2270; J2370; J2405; J2590; J2704; J2765; J3010; J3490; J7060; J7120

== ENCOUNTER → 2019-04-17 | Outpatient (CLI) | payer BC ==
--- NOTE | 2019-04-17 14:22 | RADIOLOGY REPORT (SQ) ---
EXAM DESCRIPTION: CHEST PA/LATERAL COMPLETED DATE/TIME: 04/17/2019 2:08 pm REASON FOR STUDY: COUGH COMPARISON: PA and lateral views of the chest from 02/22/2010. EXAM PARAMETERS: NUMBER OF VIEWS: two views TECHNIQUE: PA and lateral views of the chest were obtained. RADIATION DOSE: NA LIMITATIONS: none FINDINGS: LUNGS AND PLEURA: No consolidation, pleural effusion or pneumothorax. MEDIASTINUM AND HILAR STRUCTURES: No mediastinal or hilar contour abnormality. HEART AND VASCULAR STRUCTURES: The cardiac silhouette and pulmonary vasculature are within normal grant its. BONES: No acute findings. HARDWARE: None in the chest. OTHER: No other finding. IMPRESSION: No acute cardiopulmonary process. TECHNICAL DOCUMENTATION: JOB ID: [id number] [employer]- All Rights Reserved Reading location - IP/workstation name: [email or web address]
== END ==
LOC: RAD 13:52
PROVIDERS: ATTEND Nurse Practitioner Family
DX: R05 Cough (principal)
CPT/HCPCS: 71046

== ENCOUNTER → 2020-01-11 | Outpatient (CLI) | payer BC ==
--- NOTE | 2020-01-11 10:13 | ER RDC ASSESSMENT REPORT ---
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 - Symptoms Subjective Fever([place] feverish): No Chills: No Muscule Aches: Yes Runny Nose: Yes Sore Throat: Yes Cough (New or worsening chronic cough): Yes Shortness of breath: No Nausea or Vomiting: No Headache: Yes Abdominal Pain: Yes Diarrhea(3 or more loose stools in last 24 hours): Yes - Do you have any of the following Chronic lung disease: Asthma or emphysema or COPD: No Cystic Fibrosis: No Diabetes: No High Blood Pressure: No Cardiovascular Disease: No Chronic Kidney Disease: No Chronic Liver Disease: No Chronic blood disorder like Sickle Cell Disease: No Weak immune system due to disease or medication: No Neurologic condition that limits movement: No Developmental delay - Moderate to Severe: No Recent (within past 2 weeks) or current : No Morbid Obesity (>100 pounds over ideal weight): No Obesity Comment: Height 5 feet 2 inches weight 120 pounds - Objective Temperature: 97.8 F Pulse Rate: 66 Respiratory Rate: 18 Blood Pressure: 98/56 O2 Sat by Pulse Oximetry: 99 Objective: Given above, testing performed: If Testing Performed: Test Specimen Type Sent to General - General Information source: Patient Notes: 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 Patient reports had positive exposure to a patient in the office that has tested positive for COVID. Patient does report that she was wearing PPE during that encounter. Patient reports symptoms not sure when they started that include muscle aches runny nose sore throat and cough headache abdominal pain and diarrhea. Patient does report that she has seasonal allergies and is on her. And symptoms may be connected with either of those. - Related Data Allergies/Adverse Reactions: sulfamethoxazole [From Septra] Allergy (Mild, Verified 06/05/17 12:22) RASH trimethoprim [From Septra] Allergy (Mild, Verified 06/05/17 12:22) Past Medical History - General Information source: Patient - Social History Smoking Status: Former Smoker - Quit two years ago Family History: Reviewed & Not Pertinent Neurological Medical History: Denies: Hx Cerebrovascular Accident, Hx Seizures Endocrine Medical History: Denies: Hx Hyperthyroidism, Hx Hypothyroidism Renal/ Medical History: Reports: Hx Kidney Stones - during , Hx Ovarian Cysts - 2009 RUPTURED. Denies: Hx Peritoneal Dialysis, Hx Pelvic Inflammatory Disease Malignancy Medical History: Denies: Hx Breast Cancer, Hx Cervical Cancer, Hx Ovarian Cancer Musculoskeletal Medical History: Denies Hx Fibromyalgia Traumatic Medical History: Reports: Hx Fractures - HX OF FRACTURED RT BIG TOE, COCCYX FRACTURE Infectious Medical History: Denies: Hx HIV Past Surgical History: Reports: Hx Section, Hx Gynecologic Surgery - D&C Physical Exam - General General appearance: Appears well, Alert In distress: None Notes: PHYSICAL EXAMINATION: GENERAL: Well-appearing and in no acute distress. HEAD: Atraumatic, normocephalic. EYES: sclera anicteric, conjunctiva are normal. ENT: nares patent. Moist mucous membranes. NECK: Normal range of motion, supple without lymphadenopathy LUNGS: CTAB and equal. No wheezes rales or rhonchi. Respirations even and unlabored lung sounds clear. HEART: Regular rate and rhythm without murmurs ABDOMEN: Soft, nontender, normal bowel sounds, no guarding. EXTREMITIES: Normal range of motion, no pitting edema. No cyanosis. NEUROLOGICAL: Cranial nerves grossly intact. Normal speech. Normal gait. PSYCH: Normal mood, normal affect. SKIN: Warm, Dry, normal turgor, no rashes or lesions noted Diagnostic Results Laboratory Results: Patient informed of negative rapid strep and negative rapid flu results. Pending strep culture. Pending covid testing results. Patient provided instructions regarding covid to include: As a person under investigation for Covid 19, the [place] department of Health and Human Services, division of public health advises you to adhere to the following guidance until your test results are reported to you. If your test result is positive, you will receive additional information from your provider and your local health department at that time. Remain at home until you are cleared by the health provider or public health authorities. Keep a log of visitors to your home, notify any visitors to your home of your isolation status. If you plan to move to a new address or leave the counts include 234 beds at the [facility], notify the local health department in your County. Call your doctor or seek care if you have an urgent medical need. Before seeking medical care, call ahead to get instructions from the provider before arriving at the medical office clinic or hospital. Notify them that you are being tested for the virus that causes Covid 19 so that arrangements can be made, as necessary, to prevent transmission to others in the healthcare setting. Next, notify the local health department in your county. If a medical emergency arises and you need to call 911, inform the first responders that you are being tested for the virus that causes Covid 19. Next, notify the local health department in your county. Patient Education/Counseling Counseling/Education: Patient presents with upper respiratory symptoms worrisome for possible Covid 19. Patient does not have emergency worring symptoms such as difficulty breathing, shortness of breath, chest pain, pressure, confusion or cyanosis. Patient appears suitable for discharge. Patient instructed to follow-up with PCP at [facility]. To ED for persistent or worsening symptoms. Patient's vital signs are stable and patient is nontoxic in appearance. Good return precautions have been discussed with patient, patient verbalized understanding and is agreeable with discharge plan of care at this time. C Discharge - Discharge Condition: Stable Disposition: Home; Selfcare
[2020-01-11 10:15] VITALS: BP 98/56
[2020-01-11 11:01] LABS: A TYPE INFLUENZA AG NEGATIVE (NEGATIVE); B INFLUENZA AG NEGATIVE (NEGATIVE)
== END ==
LOC: RDC 09:42
PROVIDERS: ATTEND Nurse Practitioner Family
DX: Z20.828 Contact with and (suspected) exposure to other viral communicable diseases (principal); R05 Cough; J02.9 Acute pharyngitis, unspecified; R09.89 Other specified symptoms and signs involving the circulatory and respiratory systems; M79.10 Myalgia, unspecified site; R51.9 Headache, unspecified; R10.9 Unspecified abdominal pain; R19.7 Diarrhea, unspecified; J30.2 Other seasonal allergic rhinitis; Z88.1 Allergy status to other antibiotic agents; Z87.891 Personal history of nicotine dependence
CPT/HCPCS: 87070; 87880; 87804; U0003; C9803; 87635